=== PATIENT | female | born 1990 | race African-American/Black ===

== ENCOUNTER 2017-07-27 10:45 | Inpatient (IN) ==
[2017-07-27] MEDS ORDERED: MEPERIDINE 50 MG/1 ML VIAL IV PRN (12:33)
[2017-07-27] MEDS ORDERED: ONDANSETRON 4 MG/2 ML VIAL IV PRN (12:33)
[2017-07-27] MEDS ORDERED: BUTORPHANOL 2 MG/ML VIAL IV PRN (12:33)
[2017-07-27] MEDS ORDERED: AMPICILLIN INJ 2,000 MG in SODIUM CHLORIDE 0.9% 100 ML IV ONE (12:48)
[2017-07-27 12:53] LABS: Basophils % 0.2 % (0.0-0.8); Eosinophils # 0.2 10*3/uL (0.0-0.87); Eosinophils % 2.1 % (0.00-10.9); Hematocrit 32.1 VOL% (35.7-47.0); Hemoglobin 10.2 GM/DL (12.0-16.0); Immature Granulocytes % 0.5 %; Immature Granulocytes Absolute 0.05 #; Lymphocytes # 2.2 10*3/uL (1.4-4.0); Lymphocytes % 22.8 % (21.3-54.2); Mean Corpuscular HGB Conc 31.8 GM/DL (32-36); Mean Corpuscular Hemoglobin 28 PG (27-34); Mean Corpuscular Volume 86.5 FL (87-102); Mean Platelet Volume 10.2 FL (9.6-12.0); Monocytes # 0.8 10*3/uL (0.11-0.8); Monocytes % 8.3 % (1.7-12.7); Neutrophils # 6.4 10*3/uL (1.4-7.4); Neutrophils % 66.1 % (38.7-73.9); Platelet Count 235 T/CUMM (130-400); Red Blood Count 3.71 MC/CUMM (3.8-5.5); Red Cell Distribution Width 14.4 % (9.3-17.3); White Blood Count 9.7 T/CUMM (4-12)
[2017-07-27] MEDS ORDERED: LACTATED RINGERS 1,000 ML IV SCH (13:00)
[2017-07-27] MEDS ORDERED: OXYTOCIN/LR 20 UNIT/1,000 ML BAG IV SCH (13:00)
[2017-07-27 13:23] LABS: Alanine Aminotransferase < 6 U/L (13-56); Albumin 2.8 G/DL (3.4-5.0); Alkaline Phosphatase 176 U/L (45-117); Aspartate Amino Transferase 12 U/L (0-37); Bilirubin,Total < 0.39 MG/DL (0.2-1.0); Blood Urea Nitrogen 5 MG/DL (7-18); Glucose 83 MG/DL (74-106); Osmolality,Calculated 274.4 MOS/KG (273-304); Potassium 3.8 MMOL/L (3.5-5.1); Sodium 140 MMOL/L (136-145); Total Protein 6.3 G/DL (6.4-8.3)
[2017-07-27] MEDS ORDERED: AMPICILLIN INJ 1,000 MG in SODIUM CHLORIDE 0.9% 100 ML IV SCH (17:00)
[2017-07-27] MEDS ORDERED: LIDOCAINE 1% 50 ML VIAL ONE (17:57)
[2017-07-27] MEDS ORDERED: miSOPROStol 200 MCG TABLET ONE (17:57)
[2017-07-27] MEDS ORDERED: WITCH HAZEL PADS 100/JAR TOP PRN (20:07)
[2017-07-27] MEDS ORDERED: BISACODYL 10 MG SUPP RECTAL PRN (20:07)
[2017-07-27] MEDS ORDERED: HYDROCORTISONE 2.5% RECTAL CREAM 30 GM TUBE TOP PRN (20:07)
[2017-07-27] MEDS ORDERED: MEASLES/MUMPS/RUBELLA VACCINE 0.5 ML VIAL SUBCUT ONE (20:07)
[2017-07-27] MEDS ORDERED: RHO(D) IMMUNE GLOBULIN 300 MCG SYRINGE IM ONE (20:07)
[2017-07-27] MEDS ORDERED: BENZOCAINE 20%/MENTHOL 0.5% SPRAY 56 GM CAN TOP PRN (20:07)
[2017-07-27] MEDS ORDERED: LANOLIN 50% CREAM 0.3 OZ TUBE TOP PRN (20:07)
[2017-07-27] MEDS ORDERED: DIPH/TET/ACEL PERT BOOSTER VACCINE 0.5 ML VIAL IM ONE (20:07)
[2017-07-27] MEDS ORDERED: ACETAMINOPHEN 325 MG TABLET PO SCH (20:07)
[2017-07-27] MEDS: IBUPROFEN 800 MG TABLET PO SCH (20:48)
[2017-07-27] MEDS: DOCUSATE SODIUM 100 MG CAPSULE PO SCH (20:48)
[2017-07-27] MEDS ORDERED: ALUMINUM/MAGNES/SIMETH MAX STR 30 ML UDCUP PO PRN (21:35)
[2017-07-27] MEDS: ACETAMINOPHEN 500 MG TABLET PO SCH (22:32)
[2017-07-28] MEDS: ACETAMINOPHEN 500 MG TABLET PO SCH ×4 (03:07→22:37)
[2017-07-28] MEDS: IBUPROFEN 800 MG TABLET PO SCH ×3 (05:22→20:46)
[2017-07-28 05:39] LABS: Basophils % 0.2 % (0.0-0.8); Eosinophils # 0.1 10*3/uL (0.0-0.87); Hemoglobin 9.3 GM/DL (12.0-16.0); Immature Granulocytes % 0.6 %; Immature Granulocytes Absolute 0.07 #; Lymphocytes # 2.2 10*3/uL (1.4-4.0); Lymphocytes % 19.2 % (21.3-54.2); Mean Corpuscular HGB Conc 33.2 GM/DL (32-36); Mean Corpuscular Hemoglobin 28 PG (27-34); Mean Corpuscular Volume 84.3 FL (87-102); Mean Platelet Volume 10.6 FL (9.6-12.0); Monocytes # 0.8 10*3/uL (0.11-0.8); Monocytes % 7.1 % (1.7-12.7); Neutrophils # 8.3 10*3/uL (1.4-7.4); Neutrophils % 71.9 % (38.7-73.9); Platelet Count 191 T/CUMM (130-400); Red Blood Count 3.32 MC/CUMM (3.8-5.5); Red Cell Distribution Width 14.1 % (9.3-17.3); White Blood Count 11.5 T/CUMM (4-12)
[2017-07-28] MEDS: DOCUSATE SODIUM 100 MG CAPSULE PO SCH ×2 (09:20→20:46)
[2017-07-29] MEDS: ACETAMINOPHEN 500 MG TABLET PO SCH ×2 (04:32→09:25)
[2017-07-29] MEDS: IBUPROFEN 800 MG TABLET PO SCH (04:33)
[2017-07-29 08:46] VITALS: BP 125/76
[2017-07-29] MEDS: DOCUSATE SODIUM 100 MG CAPSULE PO SCH (09:25)
== END 2017-07-29 12:45 | disposition home or self-care (01) | DRG 560 ==
LOC: N.LDOUT 10:45 → N.LD 10:47 → N.OB 20:07
PROVIDERS: ADMIT Obstetrics & Gynecology; ATTEND Obstetrics & Gynecology

== ENCOUNTER 2017-09-09 19:36 | Inpatient (IN) ==
[2017-09-09] MEDS ORDERED: ONDANSETRON 4 MG/2 ML VIAL IV STA (20:37)
[2017-09-09] MEDS ORDERED: HYDROmorphone 2 MG/1 ML VIAL IV STA (20:37)
[2017-09-09] MEDS ORDERED: SODIUM CHLORIDE 0.9% 1,000 ML IV STA (20:37)
[2017-09-09 20:44] LABS: Basophils % 0.5 % (0.0-0.8); Eosinophils # 0.4 10*3/uL (0.0-0.87); Eosinophils % 4.1 % (0.00-10.9); Hemoglobin 8.5 GM/DL (12.0-16.0); Immature Granulocytes % 0.5 %; Immature Granulocytes Absolute 0.04 #; Lymphocytes # 3.1 10*3/uL (1.4-4.0); Lymphocytes % 35.1 % (21.3-54.2); Mean Corpuscular HGB Conc 31.5 GM/DL (32-36); Mean Corpuscular Hemoglobin 28 PG (27-34); Mean Corpuscular Volume 88.5 FL (87-102); Mean Platelet Volume 10.1 FL (9.6-12.0); Monocytes # 0.7 10*3/uL (0.11-0.8); Monocytes % 8.3 % (1.7-12.7); Neutrophils # 4.6 10*3/uL (1.4-7.4); Neutrophils % 51.5 % (38.7-73.9); Platelet Count 267 T/CUMM (130-400); Red Blood Count 3.05 MC/CUMM (3.8-5.5); Red Cell Distribution Width 14.9 % (9.3-17.3); White Blood Count 8.9 T/CUMM (4-12)
[2017-09-09 20:57] LABS: Albumin 3.5 G/DL (3.4-5.0); Bilirubin,Total 0.5 MG/DL (0.2-1.0); Calcium 8.6 MG/DL (8.5-10.1); Potassium 3.8 MMOL/L (3.5-5.1); Total Protein 6.4 G/DL (6.4-8.3)
[2017-09-09] MEDS ORDERED: ONDANSETRON 4 MG/2 ML VIAL ONE (21:00)
[2017-09-09] MEDS ORDERED: HYDROmorphone 2 MG/1 ML VIAL ONE (21:00)
[2017-09-09 23:08] LABS: Apearance,Urine CLEAR (Clear); Bilirubin,Urine Negative (Negative); Blood, Urine Moderate mg/dL (Negative); Glucose,Urine (UA) Negative (Negative); Ketones,Urine Negative (Negative); Mucus,Urine Occasional /LPF (Occasional); Nitrite,Urine Negative (Negative); Protein,Urine Negative; RBC,Urine 12 /HPF (0-4); Squamous Epithelial Cell,Urine Occasional /HPF (0-10); Urine Color Yellow (Yellow); Urine Specific Gravity > 1.060 (1.001-1.035); WBC,Urine 9 /HPF (0-6)
[2017-09-09 23:15] LABS: Lactic Acid 0.4 MMOL/L (0.4-2.0)
[2017-09-09] MEDS ORDERED: PIPERACILLIN/TAZOBACTAM 3,375 MG in SODIUM CHLORIDE 0.9% 100 ML IV STA (23:15)
[2017-09-09] MEDS ORDERED: PIPERACILLIN/TAZOBACTAM 3,375 MG VIAL IV ONE (23:46)
[2017-09-09] MEDS ORDERED: SODIUM CHLORIDE 0.9% 100 ML IV ONE (23:46)
[2017-09-10] MEDS ORDERED: MAGNESIUM HYDROXIDE SUSP 30 ML UDCUP PO PRN (01:02)
[2017-09-10] MEDS ORDERED: ONDANSETRON 4 MG/2 ML VIAL IV PRN (01:02)
[2017-09-10] MEDS ORDERED: ACETAMINOPHEN 325 MG TABLET PO PRN (01:02)
[2017-09-10] MEDS ORDERED: BISACODYL 10 MG SUPP RECTAL PRN (01:02)
[2017-09-10] MEDS: LACTATED RINGERS 1,000 ML IV SCH ×3 (02:30→17:00)
[2017-09-10] MEDS: SODIUM CHLORIDE 0.9% 1,000 ML IV SCH ×3 (02:31→15:50)
[2017-09-10] MEDS: IBUPROFEN 800 MG TABLET PO PRN ×3 (03:10→23:39)
[2017-09-10 05:28] LABS: Basophils % 0.4 % (0.0-0.8); Eosinophils # 0.3 10*3/uL (0.0-0.87); Eosinophils % 3.4 % (0.00-10.9); Hematocrit 26.2 VOL% (35.7-47.0); Immature Granulocytes % 0.3 %; Immature Granulocytes Absolute 0.02 #; Lymphocytes # 2.8 10*3/uL (1.4-4.0); Lymphocytes % 37.1 % (21.3-54.2); Mean Corpuscular HGB Conc 30.5 GM/DL (32-36); Mean Corpuscular Hemoglobin 27 PG (27-34); Mean Corpuscular Volume 88.5 FL (87-102); Mean Platelet Volume 9.8 FL (9.6-12.0); Monocytes # 0.6 10*3/uL (0.11-0.8); Monocytes % 8.4 % (1.7-12.7); Neutrophils # 3.8 10*3/uL (1.4-7.4); Neutrophils % 50.4 % (38.7-73.9); Platelet Count 229 T/CUMM (130-400); Red Blood Count 2.96 MC/CUMM (3.8-5.5); Red Cell Distribution Width 15.2 % (9.3-17.3); White Blood Count 7.5 T/CUMM (4-12)
[2017-09-10 06:01] LABS: Albumin 2.9 G/DL (3.4-5.0); Bilirubin,Total 0.8 MG/DL (0.2-1.0); Potassium 4.1 MMOL/L (3.5-5.1); Total Protein 5.4 G/DL (6.4-8.3)
[2017-09-10] MEDS: PIPERACILLIN/TAZOBACTAM 3,375 MG in SODIUM CHLORIDE 0.9% 100 ML IV SCH ×3 (08:15→23:24)
[2017-09-10] MEDS: DOCUSATE SODIUM 100 MG CAPSULE PO SCH ×2 (08:15→20:30)
[2017-09-10] MEDS: MORPHINE 4 MG/1 ML VIAL IV PRN (09:40)
[2017-09-11] MEDS: LACTATED RINGERS 1,000 ML IV SCH (01:29)
[2017-09-11 05:37] LABS: Basophils % 0.4 % (0.0-0.8); Eosinophils # 0.4 10*3/uL (0.0-0.87); Eosinophils % 5.3 % (0.00-10.9); Hematocrit 25.5 VOL% (35.7-47.0); Hemoglobin 8.1 GM/DL (12.0-16.0); Immature Granulocytes % 0.4 %; Immature Granulocytes Absolute 0.03 #; Lymphocytes # 2.2 10*3/uL (1.4-4.0); Lymphocytes % 31.9 % (21.3-54.2); Mean Corpuscular HGB Conc 31.8 GM/DL (32-36); Mean Corpuscular Hemoglobin 28 PG (27-34); Mean Corpuscular Volume 88.9 FL (87-102); Mean Platelet Volume 10.1 FL (9.6-12.0); Monocytes # 0.6 10*3/uL (0.11-0.8); Neutrophils # 3.7 10*3/uL (1.4-7.4); Platelet Count 250 T/CUMM (130-400); Red Blood Count 2.87 MC/CUMM (3.8-5.5); Red Cell Distribution Width 15.5 % (9.3-17.3)
[2017-09-11 05:58] LABS: Albumin 2.7 G/DL (3.4-5.0); Bilirubin,Total 1.4 MG/DL (0.2-1.0); Total Protein 5.3 G/DL (6.4-8.3)
[2017-09-11] MEDS: SODIUM CHLORIDE 0.9% 1,000 ML IV SCH (07:25)
[2017-09-11] MEDS: PIPERACILLIN/TAZOBACTAM 3,375 MG in SODIUM CHLORIDE 0.9% 100 ML IV SCH ×3 (08:31→23:36)
[2017-09-11] MEDS: FERROUS SULFATE ER 140 MG TABLET PO SCH (10:11)
[2017-09-11] MEDS: DOCUSATE SODIUM 100 MG CAPSULE PO SCH ×2 (10:11→20:54)
[2017-09-11] MEDS: IBUPROFEN 800 MG TABLET PO PRN (10:12)
[2017-09-12] MEDS: LACTATED RINGERS 1,000 ML IV SCH ×3 (00:31→21:23)
[2017-09-12] MEDS: SODIUM CHLORIDE 0.9% 1,000 ML IV SCH ×4 (00:32→21:23)
[2017-09-12] MEDS: MORPHINE 4 MG/1 ML VIAL IV PRN (04:41)
[2017-09-12] MEDS: PIPERACILLIN/TAZOBACTAM 3,375 MG in SODIUM CHLORIDE 0.9% 100 ML IV SCH ×3 (08:50→23:41)
[2017-09-12] MEDS: FERROUS SULFATE ER 140 MG TABLET PO SCH (08:50)
[2017-09-12] MEDS: DOCUSATE SODIUM 100 MG CAPSULE PO SCH ×2 (08:50→21:18)
[2017-09-13] MEDS: LACTATED RINGERS 1,000 ML IV SCH ×2 (02:33→09:30)
[2017-09-13] MEDS: SODIUM CHLORIDE 0.9% 1,000 ML IV SCH ×2 (02:33→09:30)
[2017-09-13] MEDS: FERROUS SULFATE ER 140 MG TABLET PO SCH (09:30)
[2017-09-13] MEDS: PIPERACILLIN/TAZOBACTAM 3,375 MG in SODIUM CHLORIDE 0.9% 100 ML IV SCH (09:30)
[2017-09-13] MEDS: DOCUSATE SODIUM 100 MG CAPSULE PO SCH (09:30)
[2017-09-13 11:46] VITALS: BP 125/58
== END 2017-09-13 14:45 | disposition home or self-care (01) | DRG 561 ==
LOC: N.ED 19:36 → N.EDINP 23:36 → N.3E 23:58
PROVIDERS: ADMIT Obstetrics & Gynecology; ATTEND Obstetrics & Gynecology